=== PATIENT | male | born 1940 | race Caucasian/White ===

== ENCOUNTER 2020-11-25 20:56 | Inpatient (IN) | payer OTHER ==
[~2020-11-25] VITALS: Ht 175.3 cm; Wt 103.4 kg
[~2020-11-25 20:56] MED LIST: ADVAIR 250-501 EACH INH; ALBUTEROL0.63 MG/3 INH; ASPIR-LOW81 MG PO; CEFUROXIME500 MG PO; CELEXA20 MG PO; FISH OIL 1,0001 EAC1 PO; LISINOPRIL2.5 MG PO; NOVOLIN 70100 UNIT/1 SQ; SIMVASTATIN20 MG PO; SOTALOL80 MG PO; VENTOLIN HFA 66.7 GM INH; VITAMIN B-1000 MCG/M IM; VITAMIN D 11000 UNIT PO; ZANTAC 150 MG150 MG PO
[2020-11-25 21:35] LABS: HEMOGLOBIN 13.1 gm/dl (14.0-17.5); RED BLOOD COUNT 4.59 M/UL (4.20-5.50); WHITE BLOOD COUNT 12.4 K/UL (4.5-11.0)
[2020-11-25 21:59] LABS: BUN/CREATININE RATIO 12 (0-10)
[2020-11-26 08:34] LABS: HEMOGLOBIN 12.4 gm/dl (14.0-17.5); RED BLOOD COUNT 4.5 M/UL (4.20-5.50)
[2020-11-26 08:40] LABS: WHITE BLOOD COUNT 17.2 K/UL (4.5-11.0)
[2020-11-26] MEDS ORDERED: NOVOLIN 70100 UNIT/2 SC (12:41)
[2020-11-26] MEDS ORDERED: PEPCID20 MG PO (12:41)
[2020-11-26] MEDS ORDERED: ZESTRIL5 MG PO (12:42)
[2020-11-26] MEDS ORDERED: ZOCOR40 MG PO (12:42)
[2020-11-26] MEDS ORDERED: ALBUTEROL2.5 MG/3 M NEB (12:49)
[2020-11-26] MEDS ORDERED: WARFARIN SODIU7.5 MG PO (17:59)
[2020-11-26] MEDS ORDERED: WARFARIN SODIUM5 MG PO (17:59)
[2020-11-26] MEDS ORDERED: SPIRIVA18 MCG INH (18:01)
[2020-11-27 05:28] LABS: HEMOGLOBIN 11.4 gm/dl (14.0-17.5); WHITE BLOOD COUNT 17.5 K/UL (4.5-11.0)
[2020-11-27 05:44] LABS: RED BLOOD COUNT 4.02 M/UL (4.20-5.50)
[2020-11-27] MEDS ORDERED: FLAGYL500 MG PO (10:59)
[2020-11-27] MEDS ORDERED: PREDNISONE 10 M10 MG PO (10:59)
[2020-11-27] MEDS ORDERED: CIPRO500 MG PO (10:59)
== END 2020-11-27 13:05 | disposition home or self-care (01) | DRG 444 ==
LOC: ER1 20:56 → CDU 11-26 00:08 → MED SURG 4 11-26 14:06
PROVIDERS: Internal Medicine; Physician Assistant; ADMIT Internal Medicine
DX: K80.00 Calculus of gallbladder with acute cholecystitis without obstruction (principal); J96.21 Acute and chronic respiratory failure with hypoxia; R65.11 Systemic inflammatory response syndrome (SIRS) of non-infectious origin with acute organ dysfunction; J44.1 Chronic obstructive pulmonary disease with (acute) exacerbation; N17.9 Acute kidney failure, unspecified; I48.20 Chronic atrial fibrillation, unspecified; I25.2 Old myocardial infarction; I25.10 Atherosclerotic heart disease of native coronary artery without angina pectoris; Z20.822 Contact with and (suspected) exposure to COVID-19; I12.9 Hypertensive chronic kidney disease with stage 1 through stage 4 chronic kidney disease, or unspecified chronic kidney disease; Z88.1 Allergy status to other antibiotic agents; N18.30 Chronic kidney disease, stage 3 unspecified; Z85.53 Personal history of malignant neoplasm of renal pelvis; Z79.01 Long term (current) use of anticoagulants; Z99.81 Dependence on supplemental oxygen; Z95.5 Presence of coronary angioplasty implant and graft; Z90.49 Acquired absence of other specified parts of digestive tract; Z82.49 Family history of ischemic heart disease and other diseases of the circulatory system; Z87.891 Personal history of nicotine dependence
CPT/HCPCS: 36415; 36600; 71045; 76705; 80048; 80053; 81001; 82550; 82553; 82803; 82962; 83605; 83690; 84484; 85025; 85610; 93005; 94640; 94664; 94760; 96374; 96375; 99285; J0696; J2270; J2405; J2920; J3430; J7070; Q9965; U0002